=== PATIENT | female | born 1965 | race African-American/Black ===

== ENCOUNTER → 2018-12-06 | Day surgery (SDC) | payer MEDICARE ==
[2018-12-04 18:10] LABS: ANION GAP 13.4 mmol/L (8-16); BLOOD UREA NITROGEN 17 mg/dL (7-26); BUN/CREATININE RATIO 18 (6-25); CALCIUM 9.4 mg/dL (8.4-10.2); CARBON DIOXIDE 25 mmol/L (22-29); CHLORIDE 109 mmol/L (98-107); CREATININE, SERUM 0.93 mg/dL (0.57-1.11); EST GLOMERULAR FILTRATION RATE > 60 ML/MIN (60-); GLUCOSE 77 mg/dL (74-118); POTASSIUM 4.4 mmol/L (3.5-5.1); SODIUM 143 mmol/L (136-145)
[~2018-12-06] MED LIST: ASPIR 8181 MG PO; BUPIVACAINE HCL 0.5% INJ 30 ML VIAL INJ ONE; CARVEDILOL12.5 MG PO; CEFAZOLIN SOD 1 GM/NS 50ML 100 ML IV ONE; CRESTOR10 MG PO; DEXAMETHASONE SOD PHOS INJ 4 MG/ML VIAL ONE; FENTANYL CITRATE/PF 100MCG/2 ML INJ ONE; FUROSEMIDE40 MG PO; HYDRALAZINE HCL10 MG PO; ISOSORBIDE DINI20 MG PO; KETOROLAC TROMETHAMINE 30 MG/ML VIAL ONE; LIDOCAINE HCL 2% LOCAL INJ 5 ML SDV VIAL INJ ONE; LISINOPRIL10 MG PO; MIDAZOLAM HCL 2 MG/2 ML VIAL ONE; ONDANSETRON HCL INJ 2MG/ML 2ML 2 MG/ML VIAL ONE; PROPOFOL IV EMULSION 10 MG/ML 20 ML VIAL ONE; SEVOFLURANE INHAL SOLN 250 ML PEN BTL ONE; SPIRONOLACTONE25 MG PO; VITAMIN D250000 UNIT PO
--- OUTSIDE RECORDS SUMMARY | 2018-12-06 08:15 | XMS REPORT ---
Author 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 Allergies, Adverse Reactions, Alerts This patient has no known allergies or adverse reactions. Medications This patient has no known medications. Encounters Start Date/Time End Date/Time Encounter Type Admission Type Attending [facility] Care Department Encounter ID 2018-08-30 00:00:00 2018-08-30 00:00:00 Outpatient [facility] [id number] 2018-06-07 14:04:21 2018-06-07 14:04:21 Outpatient [facility] [id number] 2018-01-26 11:59:27 2018-01-26 11:59:27 Outpatient [facility] [id number] 2018-01-18 13:06:39 2018-01-18 13:06:39 Outpatient [facility] [id number] 2017-12-12 08:49:48 2017-12-12 08:49:48 Outpatient [facility] [id number] 2017-12-05 06:55:02 2017-12-05 06:55:02 Outpatient [facility] [id number] 2017-10-19 16:24:40 2017-10-19 16:24:40 Outpatient [facility] [id number] 2017-10-19 12:57:46 2017-10-19 12:57:46 Outpatient [facility] [id number]
--- OUTSIDE RECORDS SUMMARY | 2018-12-06 08:15 | XMS REPORT | Clinical Summary ---
Author Author [facility] Address Unknown Phone Unavailable Care Team Providers Care Hotel Valet Attendant Name Role Phone Steven Tolliver MD PCP Allergies Not on File Medications Not on file Active Problems Not on file Encounters Care Team Description Date Type Specialty Steven Tolliver MD Elevated carcinoembryonic antigen (CEA) (Primary Dx) 08/30/2018 Transcribe Access Orders Steven Tolliver MD Encounter for special screening examination for neoplasm of breast (Primary Dx) 08/28/2018 Transcribe Access Orders Daniel Camacho MD Abnormal weight loss (Primary Dx) 08/28/2018 Transcribe Access Orders after 12/05/2017 Social History Date Tobacco Use Types Packs/Day Years Used Never Assessed Sex Assigned at Date Recorded Not on file Industry Job Start Date Occupation Not on file Not on file Not on file Travel End Travel History Travel Start No recent travel history available. Last Filed Vital Signs Not on file Plan of Treatment Health Maintenance Due Date Last Done Comments COLONOSCOPY SCREENING 11/03/2015 SHINGLES VACCINES (#1) 11/03/2015 INFLUENZA VACCINE 12/14/2018 BREAST CANCER SCREENING 08/31/2020 08/31/2018 Procedures Comments Procedure Name Priority Date/Time Associated Diagnosis MAMMO BREAST SCREEN Routine 08/31/2018 Encounter for special TOMOSYNTHESIS BILATERAL 2:11 PM CDT screening examination for neoplasm of breast CT ABDOMEN PELVIS W Routine 08/31/2018 Abnormal weight loss CONTRAST 1:39 PM CDT XR CHEST 2 VW Routine 08/30/2018 Elevated carcinoembryonic 9:33 AM CDT antigen (CEA) after 12/05/2017 Results * Mammo Breast Screen Tomosynthesis Bilateral (08/31/2018 2:11 PM CDT) Specimen Narrative Performed At PROCEDURE: MAMMO BREAST SCREEN TOMOSYNTHESIS BILATERAL [facility] Computer aided detection was utilized for the interpretation of the digital bilateral screening mammography with tomosynthesis. COMPARISON: There is no prior studies available for comparison. DENSITY: There are scattered areas of fibroglandular density. There are benign scattered calcifications in both breasts. There is no evidence of suspicious masses, architectural distortions or grouped calcifications. IMPRESSION:No mammographic evidence of malignancy. RECOMMENDATION: Comparison with physical exam and annual screening mammography. BI-RADS 2: Benign. This facility is accredited by the [employer] for Mammography. A negative x-ray report should not delay biopsy if a dominant or clinically suspicious mass is present.Not all cancers are identified by x-ray. [id number] Performing Organization Address City/State/Zipcode Phone Number [facility] [address] [place] [address] * CT Abdomen Pelvis W Contrast (08/31/2018 1:39 PM CDT) Specimen Narrative Performed At EXAMINATION:CT ABDOMEN PELVIS W CONTRAST [facility] CLINICAL HISTORY:R63.4 Abnormal weight loss, abnormal weight loss TECHNIQUE: Multiple axial images of the abdomen and pelvis were obtained following intravenous administration of iodinated contrast. CT imaging was performed with iterative reconstruction technique and/or automated exposure control to reduce radiation dose. COMPARISON: None FINDINGS: LOWER THORAX: Atelectatic changes of lung bases. ABDOMEN: Liver: Subcentimeter hypodensity in segment 2 is too small to characterize. Borderline hepatic steatosis. Portal vein is patent. Gallbladder: Contracted Spleen: The spleen is not enlarged. Pancreas: The pancreas is unremarkable. Adrenal Glands: The adrenal glands are unremarkable. Kidneys: The kidneys are unremarkable. No mass, hydronephrosis or calculi. Abdominal Aorta: Calcification of the abdominal aorta is noted. No aneurysm. Nodes: No enlarged retroperitoneal or mesenteric lymphadenopathy. Bowel: No bowel obstruction or inflammation. Diverticulosis without evidence of diverticulitis. Other: Small hiatal hernia with distal esophageal wall thickening. Endoscopic follow-up may be of benefit. PELVIS: Pelvis: No mass, fluid collection or significant adenopathy. Prior hysterectomy Bones and soft tissues: Degenerative changes of the osseous structures. No suspicious lesions. IMPRESSION: 1.No acute abnormalities. 2.Small hiatal hernia with distal esophageal wall thickening. This could be secondary to esophagitis/reflux although endoscopic follow-up may be of benefit. [id number] Procedure Note Interface, Radiology Results Incoming - 08/31/2018 2:49 PM CDT EXAMINATION: CT ABDOMEN PELVIS W CONTRAST CLINICAL HISTORY: R63.4 Abnormal weight loss, abnormal weight loss TECHNIQUE: Multiple axial images of the abdomen and pelvis were obtained following intravenous administration of iodinated contrast. CT imaging was performed with iterative reconstruction technique and/or automated exposure control to reduce radiation dose. COMPARISON: None FINDINGS: LOWER THORAX: Atelectatic changes of lung bases. ABDOMEN: Liver: Subcentimeter hypodensity in segment 2 is too small to characterize. Borderline hepatic steatosis. Portal vein is patent. Gallbladder: Contracted Spleen: The spleen is not enlarged. Pancreas: The pancreas is unremarkable. Adrenal Glands: The adrenal glands are unremarkable. Kidneys: The kidneys are unremarkable. No mass, hydronephrosis or calculi. Abdominal Aorta: Calcification of the abdominal aorta is noted. No aneurysm. Nodes: No enlarged retroperitoneal or mesenteric lymphadenopathy. Bowel: No bowel obstruction or inflammation. Diverticulosis without evidence of diverticulitis. Other: Small hiatal hernia with distal esophageal wall thickening. Endoscopic follow-up may be of benefit. PELVIS: Pelvis: No mass, fluid collection or significant adenopathy. Prior hysterectomy Bones and soft tissues: Degenerative changes of the osseous structures. No suspicious lesions. IMPRESSION: 1. No acute abnormalities. 2. Small hiatal hernia with distal esophageal wall thickening. This could be secondary to esophagitis/reflux although endoscopic follow-up may be of benefit. [id number] Performing Organization Address City/State/Zipcode Phone Number [facility] [address] [place] [address] * XR Chest 2 Vw (08/30/2018 9:33 AM CDT) Specimen Narrative Performed At EXAMINATION:XR CHEST 2 VW [facility] CLINICAL HISTORY:R97.0 Elevated carcinoembryonic antigen (CEA), R97.0 COMPARISON:No prior IMPRESSION: Lines: None Lungs and pleura: No consolidations. No pleural effusion or pneumothorax. Heart and mediastinum: Mildly enlarged appearance of cardiomediastinal silhouette. Bones: No suspicious osseous lesions.Thoracic spondylosis. [id number] Procedure Note Interface, Radiology Results Incoming - 08/30/2018 9:39 AM CDT EXAMINATION: XR CHEST 2 VW CLINICAL HISTORY: R97.0 Elevated carcinoembryonic antigen (CEA), R97.0 COMPARISON: No prior IMPRESSION: Lines: None Lungs and pleura: No consolidations. No pleural effusion or pneumothorax. Heart and mediastinum: Mildly enlarged appearance of cardiomediastinal silhouette. Bones: No suspicious osseous lesions. Thoracic spondylosis. [id number] Performing Organization Address City/State/Zipcode Phone Number [facility] [address] [place] [address] after 12/05/2017 Insurance Type Payer Benefit Subscriber ID Effective Phone Address Plan / Dates Group PPO HUMANA MEDICARE HUMANA xxxxxxxxx 2017-P MEDICARE resent PPO/PFFS/E RS [facility] Advance Directives Patient has advance care planning documents on file. For more information, samuel bonds contact: Joni Cortez [address] [place] [address]
--- OUTSIDE RECORDS SUMMARY | 2018-12-06 08:15 | XMS REPORT | Summary of Care ---
Author Author ALICJA Monique, BRIANNA Organization Unknown Address Unknown Phone Unavailable Care Team Providers Care Building Maintenance Repairer Name Role Phone BRIANNA LUCERO M.D. Unavailable Unavailable KIRT BRANDT MD Unavailable Unavailable Brianna Lucero MD Unavailable Unavailable Unavailable Unavailable Functional Status Name Dates Details Functional status health issues are not documented Status: Name Dates Details Cognitive status health issues are not documented Status: Problems Name Dates Details HFrEF (heart failure with reduced ejection fraction) (428.20, I50.20) Status: Active Essential hypertension (401.9, I10) Status: Active Other hyperlipidemia (272.4, E78.49) Status: Active Vitamin D deficiency (268.9, E55.9) Status: Active Medications Name Dates Details Torsemide 20 MG Oral Tablet TAKE 1 TABLET TWICE DAILY Quantity: 180 TZOU M.D., BRIANNA Active Carvedilol 12.5 MG Oral Tablet TAKE 1 TABLET TWICE DAILY. * Quantity: 180 Refills: 1 TZOU M.D., BRIANNA Active Rosuvastatin Calcium 20 MG Oral Tablet TAKE 1 TABLET BEDTIME * Quantity: 90 Refills: 3 TZOU M.D., BRIANNA Active Lisinopril 40 MG Oral Tablet TAKE 1 TABLET DAILY. * Quantity: 90 Refills: 1 TZOU M.D., BRIANNA Active Vitamin D2 TABS TAKE 1 TABLET WEEKLY * Refills: 0 Active hydrALAZINE HCl - 10 MG Oral Tablet TAKE 1 TABLET 3 TIMES DAILY * Quantity: 270 Refills: 1 TZOU M.D., BRIANNA Active Isosorbide Dinitrate 10 MG Oral Tablet TAKE 1 TABLET 3 TIMES DAILY * Quantity: 270 Refills: 1 TZOU M.D., BRIANNA Active Spironolactone 25 MG Oral Tablet TAKE 1 TABLET DAILY DIRECTED. * Quantity: 90 Refills: 1 TZOU M.D., BRIANNA Active Aspirin Low Dose 81 MG Oral Tablet Chewable TAKE 1 TABLET DAILY * Quantity: 90 Refills: 3 TZOU M.D., BRIANNA * Start : 09-Nov-2018 Active Allergies and Adverse Reactions Name Dates Details No Known Drug Allergies (Allergy) Status: Active Past Medical History Name Dates Details History of CHF (congestive heart failure) (V12.59, Z86.79) Status: Resolved History of depression (V11.8, Z86.59) Status: Resolved History of hyperlipidemia (V12.29, Z86.39) Status: Resolved History of hypertension (V12.59, Z86.79) Status: Resolved Procedures Procedure Dates Details ECG-12 Lead Date: 09-Nov-2018 History of Cardiac catheterization Completed History of Hysterectomy Total, With Removal Of Both Tubes And Both Ovaries Completed Immunization Name Dates Details Immunizations not documented Family History Name Dates Details Family history of hypertension (V17.49, Z82.49) Status: Active Family history of congestive heart failure (V17.49, Z82.49) Status: Active Family history of Diabetes mellitus type 2, noninsulin dependent (250.00, E11.9) Status: Active Name Dates Details Family history of type 2 diabetes mellitus (V18.0, Z83.3) Status: Active Family history of malignant neoplasm of prostate (V16.42, Z80.42) Status: Active Social History Name Dates Details - Status: Name Dates Details Current every day smoker Vital Signs Date Test Result Details [id number] BP Systolic 124 mm[Hg] Status: Comments: Location: E; Position: Sitting BP Diastolic 73 mm[Hg] Status: Comments: Location: [facility]; Position: Sitting Height 65 in Status: Weight 238 lb Status: Body Mass Index Calculated 39.61 kg/m2 Status: Body Surface Area Calculated 2.13 m2 Status: Heart Rate 75 /min Status: Respiration Rate 16 /min Status: Physical Findings 0 Status: Comments: Alcohol Screen - How many times in the past yr have you had 5 (for M) or 4 (for F) or 4 (for all > 65yrs) or more drinks in a day? Results Date Description Value Details Results not documented Plan of Care Name Dates Details Planned Observations Planned Goals not documented Interventions Provided Medication Changes* Aspirin Low Dose 81 MG Oral Tablet Chewable - Start * Carvedilol 12.5 MG Oral Tablet - Renew * hydrALAZINE HCl - 10 MG Oral Tablet - Renew * Isosorbide Dinitrate 10 MG Oral Tablet - Renew * Lisinopril 40 MG Oral Tablet - Renew * Rosuvastatin Calcium 20 MG Oral Tablet - Renew * Spironolactone 25 MG Oral Tablet - Renew * Torsemide 20 MG Oral Tablet - Renew Labs/Procedures/Imaging* ECG-12 Lead; To Be Done: 09 Nov 2018 Discussion/Summary* Ms. Gonzalez is a 52 y.o. F with HFrEF (EF 30-34%) h/o AICD s/p removal, HTN, HLD, h/o medication noncompliance, and tobacco use who was self-referred for CHF management. She has been doing well on GDMT with no recent hospitalizations for CHF. * Impressions: * -HFrEF (EF 30-34% 12/12/17) 2/2 NICMP s/p AICD that was removed (She declines replacement.), compensated: NYHA class II. On GDMT. Per pt, AICD had been removed shortly after placement at [facility] after it had fired multiple times and been replaced once within 24 hrs of removal. * -HTN * -HLD * -H/o medication noncompliance * -Marijuana abuse * Recommendations: * -Continue carvedilol 12.5 mg BID, hydralazine 10 mg TID, Isordil 10 mg TID, lisinopril 40 mg daily, torsemide 20 mg BID and spironolactone 25 mg daily (refilled x 6 mos). * -Continue rosuvasatin 20 mg daily. * -Obtain OSH records from [facility] of her cardiac catheterization from [id number]. * -Counseled on 2L-fluid and low-sodium restricted diets. * -Encouraged avoidance of marijuana. * -Pre-operative cardiac evaluation for carpal tunnel release: Can do 4 METs. Denies any signs/sx of angina, anginal equivalent or CHF. She has an RCRI score of 1 (CHF), giving her 6% risk for major cardiac event guilherme-operatively 10.1% risk for major cardiac event guilherme-operatively. Major cardiac event includes myocardial infarction, pulmonary edema, ventricular fibrillation, primary cardiac arrest, and complete heart block. Her last stress test was last November and she has not new si/sx of angina or HF. She should remain on all of her cardiac medication, including her beta-rob and statin. She is at acceptable risk for elective, low-risk, noncardiac surgery. * F/u in 3 mos * >50% of 50-min appt spent on patient education/counseling Instructions Name Dates Details Instructions not documented Encounters Appointment; BRIANNA LUCERO M.D. Encounter Diagnosis: Problem not documented On: 09-Nov-2018 13:20
[2018-12-06 12:30] VITALS: BP 162/88
--- NOTE | 2018-12-07 20:45 | Operative Report ---
DATE OF PROCEDURE: 12/06/2018 SURGEON: Giovani Dougherty MD PREOPERATIVE DIAGNOSES: 1. Right wrist ganglion cyst. 2. Right carpal tunnel syndrome. POSTOPERATIVE DIAGNOSES: 1. Right wrist ganglion cyst. 2. Right carpal tunnel syndrome. OPERATIONS AND PROCEDURES PERFORMED: The patient underwent excision of the right wrist ganglion cyst and a right carpal tunnel release. YOUTH ADVOCATE: MERCEDES Quick. ANESTHESIA: General endotracheal intubation anesthesia. IV FLUIDS: Per anesthesia record. BRIEF DESCRIPTION OF THE PATIENT'S OPERATIVE PROCEDURE: Ms. Patterson was taken to the operating room, placed in supine position on the operating table. Following induction of general anesthesia as well as endotracheal intubation, the patient patient's right upper extremity was examined under anesthesia. She was found to have a prominent ganglion cyst, proximal to the distal forearm crease along the radial and ulnar border of the wrist. There were no other gross abnormalities to the wrist or hand. The patient's upper extremity was prepped and draped in standard surgical fashion. The case was begun by approaching the ganglion through incision on the volar aspect of the forearm. Incision was created directly over the cyst and extended both proximally and distally to allow access to the cyst itself. This incision was carried through the skin only. Blunt dissection was used to deepen the incision and to isolate the cyst. The cyst was found to have multiple defects in the volar capsule of the radiocarpal joint. The cyst wall was excised and the defects in the capsule were closed using Vicryl suture. The wound was copiously irrigated. It was then closed in a multilayer fashion. Attention was then turned to the carpal tunnel. An incision was created along the thenar palmar crease. This incision was carried through the skin only. Blunt dissection was used to deepen the incision to the level of the transverse carpal ligament. The transverse carpal ligament was divided from distal to proximal protecting the underlying nerve and tendon structures. The floor of the carpal canal was evaluated and found to have no abnormalities. This wound was also irrigated and then closed in a single layer fashion. Sterile dressings were applied and the patient was then awakened and taken to postanesthesia care unit in stable condition. Ching Dai acted as first aid teacher for this case, was necessary for the prepping and draping of the patient as well as retraction of the soft tissue to allow this case to be successful. MD STAS Song/EDDIE /[id number]
== END | disposition home or self-care (01) ==
LOC: OR 08:10
PROVIDERS: ATTEND Specialist
DX: M67.431 Ganglion, right wrist (principal); G56.01 Carpal tunnel syndrome, right upper limb; R53.1 Weakness; M54.9 Dorsalgia, unspecified; R05 Cough; I11.0 Hypertensive heart disease with heart failure; I50.9 Heart failure, unspecified; E78.5 Hyperlipidemia, unspecified; K21.9 Gastro-esophageal reflux disease without esophagitis; F32.9 Major depressive disorder, single episode, unspecified; F41.9 Anxiety disorder, unspecified; Z72.0 Tobacco use; Z01.810 Encounter for preprocedural cardiovascular examination; Z01.812 Encounter for preprocedural laboratory examination; Z79.82 Long term (current) use of aspirin
CPT/HCPCS: 25111; 36415; 64721; 80048; 88304; 93005; J0690; J1100; J1885; J2001; J2250; J2405; J2704; J3010